=== PATIENT | female | born 1985 | race Caucasian/White ===

== ENCOUNTER 2018-02-19 21:27 | Emergency (ER) | payer BC ==
[~2018-02-19] VITALS: Ht 149.9 cm; Wt 59.1 kg
[2018-02-19 21:30] VITALS: BP 139/90; TEMP 98.6
[2018-02-19 22:40] VITALS: PULSE 68
== END 2018-02-19 22:40 | disposition home or self-care (01) ==
LOC: COL.ER 21:27
DX: S09.90XA Unspecified injury of head, initial encounter (principal); S01.01XA Laceration without foreign body of scalp, initial encounter; V80.018A Animal-rider injured by fall from or being thrown from other animal in noncollision accident, initial encounter

== ENCOUNTER 2018-02-25 12:45 | Emergency (ER) | payer BC ==
[2018-02-25 12:57] VITALS: BP 110/75; PULSE 60
== END 2018-02-25 13:00 | disposition home or self-care (01) ==
LOC: COL.ER 12:45
DX: S01.01XD Laceration without foreign body of scalp, subsequent encounter (principal); X58.XXXD Exposure to other specified factors, subsequent encounter